=== PATIENT | female | born 2000 | race Caucasian/White ===

== ENCOUNTER 2024-11-25 20:14 | Emergency (ER) | payer OTHER, SELFPAY ==
[~2024-11-25 20:14] MED LIST: Iopamidol-370 76% 500 ML MDV (1 ML CHARGE) ONE
[2024-11-25 20:48] LABS: #Basophils 0.03 10x3/uL (0.0-0.2); #Eosinophils Less than 0.03 10x3/uL (0.0-0.7); #Monocytes 0.34 10x3/uL (0.11-0.59); #Neutrophils 5.77 10x3/uL (1.40-6.50); %Basophils 0.4 % (0.0-1.0); %Eosinophils 0.0 % (0.0-10.0); %Lymphocytes 15.0 % (21.0-51.0); %Monocytes 4.7 % (0.0-10.0); %Neutrophils 79.6 % (42.0-75.0); Hematocrit 41.1 % (36.0-47.0); Hemoglobin 14.2 g/dL (12.0-16.0); Mean Corpuscular Hemoglobin 31.9 pg (27.0-31.0); Mean Corpuscular Volume 92.4 fL (78.0-98.0); Platelet Count 214 10x3/uL (130-400); Red Blood Cell (RBC) Count 4.45 mill/uL (4.20-5.40); White Blood Cell (WBC) Count 7.25 10x3/uL (4.8-10.8)
[2024-11-25 21:10] LABS: ALT (SGPT) 30 U/L (Less than 34); AST (SGOT) 30 U/L (11-34); Albumin 4.9 g/dL (3.1-4.5); Alkaline Phosphatase 61 U/L (40-110); Anion Gap 13 mmol/L (10-20); BUN (Urea Nitrogen) 9 mg/dL (7.0-18.7); Bilirubin, Total 0.8 mg/dL (0.3-1.2); Calc. Creatinine Clearance 0 mL/min (70-130); Calcium 9.7 mg/dL (7.8-10.44); Carbon Dioxide 27 mmol/L (22-29); Chloride 102 mmol/L (98-107); Globulin 3.2 g/dL (2.4-3.5); Glucose 93 mg/dL (70-105); Lipase 11 U/L (8-78); Potassium 4.5 mmol/L (3.5-5.1); Sodium 137 mmol/L (136-145)
[2024-11-25 22:17] LABS: Bacteria/HPF None Seen HPF (None Seen); CAUTI Indications for Culture Pelvic or flank pain; Glucose, Urine (Dipstick) Normal (Negative); Leukocyte Negative Leu/uL (Negative); Pregnancy Test - Urine (BHCG) Negative (Negative); Pregu Control Background? CLEAR/WHITE (CLR/WHITE); Pregu Control Bar Appear? YES (CONTROL BAR); Protein, Urine (Dipstick) Negative (Neg-Trace); RBC/HPF 0-3 HPF (0-3); Specific Gravity, Urine 1.026 (1.002-1.036); WBC/HPF 0-3 HPF (0-3)
[2024-11-25 22:21] LABS: Urine Culture Reflex No No
[2024-11-26] MEDS ORDERED: HYDROcodone/Acetaminophen 5/325 mg Tablet ONE (01:40)
== END 2024-11-26 01:54 | disposition home or self-care (01) ==
LOC: ERS 20:14
DX: N83.202 Unspecified ovarian cyst, left side (principal)
CPT/HCPCS: 36415; 74177; 76856; 80053; 81001; 81025; 83690; 85025; 93976; 96374; J3010; Q9967